=== PATIENT | male | born 1965 | race Caucasian/White ===

== ENCOUNTER 2024-09-10 11:55 | Emergency (ER) | payer OTHER ==
[~2024-09-10] VITALS: Ht 175.3 cm; Wt 112.0 kg
[2024-09-10 12:50] LABS: *BILIRUBIN,URIN NEGATIVE (NEGATIVE); *BLOOD, URINE NEGATIVE (NEGATIVE); *CLARITY,URINE CLEAR (CLEAR); *COLOR,URINE YELLOW (YELLOW); *KETONES,URINE NEGATIVE (NEGATIVE); *PROTEIN,URINE NEGATIVE (NEGATIVE); *UROBILINOGEN,URINE 0.2 E.U./dl (NORMAL); LEUKOCYTE ESTERASE ,URINE NEGATIVE (NEGATIVE); NITRITE, URINE NEGATIVE (NEGATIVE); PH,URINE 5.5 (5.0-8.0); UGLUCOSE NEGATIVE (NEGATIVE)
[2024-09-10 12:53] LABS: BASOPHILS # (AUTO) 0.1 K/UL (0.0-0.2); BASOPHILS % (AUTO) 0.7 % (0.0-2.0); EOSINOPHILS # (AUTO) 0.2 K/uL (0.0-0.7); EOSINOPHILS % (AUTO) 2.5 % (0.0-7.0); HEMATOCRIT 44.2 % (36.7-47.1); HEMOGLOBIN 15.3 g/dL (12.5-16.3); LYMPHOCYTES # (AUTO) 2.9 K/uL (0.8-4.8); LYMPHOCYTES % (AUTO) 37.6 % (20.5-51.5); MEAN CORPUSCULAR HEMOGLOBIN 28.5 uug (23.8-33.4); MEAN CORPUSCULAR HGB CONC 35 g/dL (32.5-36.3); MEAN CORPUSCULAR VOLUME 82.3 fL (73.0-96.2); MONOCYTES # (AUTO) 0.5 K/uL (0.1-1.30); MONOCYTES % (AUTO) 7.1 % (0.0-11.0); NEUTROPHILS % (AUTO) 52.1 % (38.5-71.5); PLATELET COUNT (AUTO) 188 K/uL (152-348); RED BLOOD CELL COUNT(AUTO) 5.37 MIL/uL (4.06-5.63); WHITE BLOOD COUNT (AUTO) 7.7 K/uL (3.6-10.2)
[2024-09-10 12:54] LABS: DIFFERENTIAL COMMENT 1
[2024-09-10] MEDS ORDERED: ONDANSETRON 4 MG/2 ML VIAL ONE (13:01)
[2024-09-10 13:02] LABS: CALCIUM 8.9 mg/dL (8.5-10.1); CREATININE 0.9 mg/dL (0.6-1.3); POTASSIUM 4.2 mmol/L (3.5-5.1)
[2024-09-10] MEDS ORDERED: HYDROMORPHONE 1 MG/1 ML DISP.SYRIN ONE (13:02)
[2024-09-10] MEDS: IV NORMAL SALINE 1000 ML BAG IV ONE (13:06)
[2024-09-10] MEDS: ONDANSETRON 4 MG/2 ML VIAL IV ONE (13:06)
[2024-09-10] MEDS ORDERED: IOHEXOL 300MG/ML 100 ML INFUS..BTL ONE (13:10)
[2024-09-10] MEDS ORDERED: SWABABLE VALVE TRANSFER SET EA MC ONE (13:10)
[2024-09-10] MEDS ORDERED: IV NORMAL SALINE 250 ML IV ONE (13:10)
[2024-09-10] MEDS: HYDROMORPHONE 1 MG/1 ML DISP.SYRIN IV ONE (13:14)
[2024-09-10 13:16] LABS: ALBUMIN 3.7 g/dL (3.4-5.0); BILIRUBIN,DIRECT 0.1 mg/dL (0.0-0.2); BILIRUBIN,TOTAL 0.5 mg/dL (0.2-1.0); TOTAL PROTEIN, SERUM 6.8 g/dL (6.4-8.2)
[2024-09-10] MEDS ORDERED: BISA-79 PO (15:25)
[2024-09-10] MEDS ORDERED: FLAS1KIT2 TP (15:25)
[2024-09-10] MEDS ORDERED: BISA10SU61 RC (15:25)
[2024-09-10] MEDS ORDERED: FLAS1EAC2 TP (15:25)
[2024-09-10] MEDS ORDERED: MAGNESIUM HYDROXIDE 30 ML LIQUID UDC ONE (15:33)
[2024-09-10] MEDS: MAGNESIUM HYDROXIDE 30 ML LIQUID UDC PO ONE (15:43)
[2024-09-10 15:47] VITALS: BP 133/77; TEMP 98; O2SAT 98
== END 2024-09-10 15:47 | disposition home or self-care (01) ==
LOC: ER 12:07
DX: K59.00 Constipation, unspecified (principal); R11.2 Nausea with vomiting, unspecified; E11.9 Type 2 diabetes mellitus without complications; K21.9 Gastro-esophageal reflux disease without esophagitis; Z79.899 Other long term (current) drug therapy
CPT/HCPCS: 36415; 83605; 85025; J1171; J2405; J7040; Q9967